=== PATIENT | male | born 1960 ===

== ENCOUNTER 2016-07-09 09:25 | Inpatient (IN) | payer OTHER ==
[2016-07-09] MEDS ORDERED: NS 500 ML IV ONE (09:35)
[2016-07-09] MEDS ORDERED: DEXAMETHASONE 10 MG/ML VIAL IVP ONE (09:53)
[2016-07-09] MEDS ORDERED: MANNITOL 20% 100 GM/500 ML BAG IV ONE (09:55)
--- NOTE | 2016-07-09 09:57 | CPEKG ---
Heart Rate: 65 RR Interval: 923 P-R Interval: 156 QRSD Interval: 96 QT Interval: 420 QTC Interval: 437 P Beebe: 26 QRS Beebe: 51 T Wave Beebe: 65 EKG Severity - NORMAL ECG - EKG Impression: SINUS RHYTHM Electronically Signed By: Baudilio Lizarraga 09-Jul-2016 15:00:12
--- NOTE | 2016-07-09 10:07 | EDPHY ---
H & P Time Seen by Provider: 07/09/16 09:34 HPI/ROS: HPI Altered mental status. 55-year-old male from [facility]. The patient has a history of brain cancer as well as a prior CVA with left-sided residual weakness. Staff noted a sudden decrease in mental status documented at 9:00 a.m.. Serum glucose normal per EMS. EMS reported that patient's pupils were 3 mm and reactive bilaterally on their exam. On my exam he has pinpoint pupils that are minimally reactive. Patient will nod his head and mumble in response to questioning. He is a do not resuscitate. We have the documentation for this with him. ROS: Unable to obtain review of systems secondary to patient's altered mental status. Past medical history: Brain cancer, CVA, left-sided weakness. Social history: From senior living. As above. Physical Exam: General Appearance: Alert, no distress. As above. This patient appears well- hydrated and well-nourished. Eyes: Pupils pinpoint, equal and round with minimal reactivity to light, no pallor or injection. No lid edema, erythema or injection. Head: No evidence of acute traumatic injury. ENT, Mouth: Mucous membranes are moist. Respiratory: There are no retractions, lungs are clear to auscultation with good air movement bilaterally. Cardiovascular: Regular rate and rhythm. No murmur. Gastrointestinal: Obese habitus. Abdomen is soft and nontender, no masses, bowel sounds normal. No obvious focal tenderness at McBurney's point. No Cruz sign. Neurological: Moves right upper and lower extremity. Skin: Warm and dry. Left upper extremity is wrapped in a gauze wrap secondary to the patient banging this strep extremity into objects at senior living and picking at scratches. Musculoskeletal: Neck is supple. Extremities are symmetrical except as noted above Psychiatric: Not applicable Database: EKG: EKG time is 9:56 a.m.; EKG shows a narrow complex normal sinus rhythm with a ventricular rate of 65. The RI, QRS, QT intervals are within normal limits. There are no ST-T wave changes indicative of ischemic or injury pattern. No evidence of right heart strain. Interpreted by me. Imaging: CT scan of head without contrast: Significant for a right frontal lobe 9 cm in diameter mass with vasogenic edema surrounding it and some hemorrhage. There is a 10 mm right-sided a left-sided shift. There is early uncal herniation. The 4th ventricle appears to be open. He also has a 12 x 5 mm artifact in the right parietal lobe. Unable to clarify what this is. Results were discussed with staff radiologist. Procedures: Emergency department course: IV placed. Patient placed on a monitor. Do not resuscitate paperwork verified. Patient was sent for a noncontrast CT scan of his head. His vital signs have been reviewed. 10:00 a.m., patient has returned from CT. Patient given 10 mg of IV Decadron and 1 gram/kilogram of IV mannitol. No change in the patient's neurologic status. Plan to admit to hospitalist service. 10:15 a.m., discussed case with hospitalist. Patient will be admitted to the hospitalist service under Dr. Hough. Patient has received IV Decadron and is currently receiving IV mannitol. No change in his mental status or neurologic Assessment. Patient admitted to the hospitalist service in stable condition. Differential Diagnosis: The differential diagnosis on this patient includes but is not limited to large right frontal lobe mass with hemorrhage and edema, altered mental status, uncal herniation. This represents a partial list of diagnoses considered. These considerations are based on history, physical exam, past history, reassessment and diagnostic testing. Constitutional: Initial Vital Signs Temperature (C) 37.5 C 07/09/16 09:35 Heart Rate 63 07/09/16 09:35 Respiratory Rate 23 H 07/09/16 09:35 Blood Pressure 148/89 H 07/09/16 09:35 O2 Sat (%) 93 07/09/16 09:35 O2 Delivery Mode Nasal Cannula O2 (L/minute) 2 Allergies/Adverse Reactions: No Known Allergies Allergy (Unverified 07/09/16 10:17) Home Medications: Medication Instructions Recorded Acetaminophen [Tylenol ES 500 mg 500 mg PO Q4H PRN 07/09/16 (*)] Dexamethasone [Decadron 4 MG (*)] 4 mg PO BID 07/09/16 Famotidine [Pepcid 20 MG (*)] 20 mg PO BID 07/09/16 Gabapentin [Neurontin 300 MG (*)] 300 mg PO HS 07/09/16 Granisetron HCl 1 mg PO Q12H PRN 07/09/16 Insulin Lispro [humALOG LISPRO 100 3 unit SC AD 07/09/16 units/ml (*)] Lacosamide [Vimpat 50 mg (*)] 100 mg PO DAILY 07/09/16 Latanoprost 0.005% [Xalatan 0.005% 1 drops EACHEYE HS 07/09/16 (*)] Naproxen 250 mg PO DAILY PRN 07/09/16 Omeprazole [Prilosec 20 mg] 20 mg PO DAILY 07/09/16 Prochlorperazine Maleate 10 mg PO Q6H PRN 07/09/16 [Compazine 10mg (*)] Sennosides 1 tab PO DAILY 07/09/16 Sodium Chloride [Salt Tablet] 3,000 mg PO TID 07/09/16 Sulfamethox/Tmp 800/160 mg 1 tab PO MOWEFR@0800 07/09/16 [Bactrim Ds] levETIRAcetam [Keppra 500 mg (*)] 2,000 mg PO BID 07/09/16 Medical Decision Making - Data Points Laboratory Results: Laboratory Results 07/09/16 10:10 07/09/16 10:10 Medications Given: Discontinued Medications Dexamethasone (Decadron Injection) 10 mg IVP EDNOW ONE Stop: 07/09/16 09:54 Last Admin: 07/09/16 10:08 Dose: 10 mg Diazepam (Valium Injection) 5 mg IVP ONCE ONE Stop: 07/09/16 15:31 Last Admin: 07/09/16 15:40 Dose: 5 mg Furosemide (Lasix Injection) 40 mg IVP ONCE ONE Stop: 07/10/16 07:01 Last Admin: 07/10/16 06:48 Dose: 40 mg Sodium Chloride (Ns) 500 mls @ 500 mls/hr IV EDNOW ONE Stop: 07/09/16 10:34 Last Admin: 07/09/16 10:22 Dose: 500 mls Mannitol (Mannitol 20% (Premix)) 80 gm IV EDNOW ONE Stop: 07/09/16 09:56 Last Admin: 07/09/16 09:59 Dose: 80 gm Departure - Departure Disposition: [facility] Acute Clinical Impression: Right frontal lobe mass, Altered mental status, Uncal herniation, Intracranial hemorrhage
[2016-07-09 10:19] LABS: % IMMATURE GRANULYOCYTES 2.4 % (0.0-1.1); ABSOLUTE IMMATURE GRANULOCYTES 0.26 10^3/uL (0.00-0.10); ABSOLUTE NRBC COUNT 0.02 10^3/uL (0-0.01); ADD DIFF? NO; ADD MORPH? NO; ADD SCAN? NO; ATYPICAL LYMPHOCYTE FLAG 0 (0-99); FRAGMENT RBC FLAG 0 (0-99); HEMATOCRIT 37.3 % (40.0-51.0); LEFT SHIFT FLG 40 (0-99); LIPEMIA HEMOLYSIS FLAG 90 (0-99); MEAN CELL HEMOGLOBIN 32.8 pg (27.9-34.1); MEAN CELL HEMOGLOBIN CONCENTR. 34.9 g/dL (32.4-36.7); MEAN CELL VOLUME 94.2 fL (81.5-99.8); MEAN PLATELET VOLUME 8.5 fL (8.7-11.7); NRBC-AUTO% 0.2 % (0.0-0.2); PLATELET CLUMPS FLAG 10 (0-99); PLATELET COUNT 150 10^3/uL (150-400); RED BLOOD CELL COUNT 3.96 10^6/uL (4.40-6.38)
[2016-07-09 10:41] LABS: ANION GAP 11 mEq/L (8-16); CALCIUM 8.8 mg/dL (8.5-10.4); CARBON DIOXIDE 25 mEq/l (22-31); CHLORIDE 92 mEq/L (97-110); CREATININE 0.6 mg/dL (0.7-1.3); GLOMERULAR FILTRATION RATE > 60; GLUCOSE 96 mg/dL (70-100); POTASSIUM 3.9 mEq/L (3.5-5.2); SODIUM 128 mEq/L (134-144)
[2016-07-09 11:01] LABS: INR 1.01 (0.83-1.16); PROTIME(PATIENT) 13.2 SEC (12.0-15.0)
--- NOTE | 2016-07-09 14:37 | GHP ---
DATE OF ADMISSION: 07/09/2016 CHIEF COMPLAINT: Altered mental status. HPI: This is a 55-year-old male, diagnosed with glioblastoma 14 months ago. He has since undergone 2 resections; last of which was done at the [facility] on May 16, 2016. Following his resection he went to inpatient rehab. When he was readmitted to [facility] on June 18, 2016 after having a bout of confusion that was attributed to symptomatic hyponatremia. The patient has since been discharged from [facility] and was at [facility] for the past week and a half when he was noted to have acute change in his mental status this morning. Prior to today he had been talking and following commands. He has been falling. He has not been noted to have any fevers or chills. At the time of my exam the patient opens eyes to voice, but is otherwise unresponsive and does not follow commands. He is nonverbal. PAST MEDICAL HISTORY: 1. Glioblastoma multiforme, diagnosed 14 months ago after having a seizure at work. 2. Renal cell carcinoma. 3. SIADH 4. Seizures PAST SURGICAL HISTORY: 1. Glioblastoma multiforme resection x2. 2. Right shoulder surgery. HOME MEDICATIONS: Were reviewed; refer to [facility] for details. ALLERGIES: No known drug allergies. SOCIAL HISTORY: The patient does have a history of some heavy alcohol use. There is no history of tobacco or illicit drug use. FAMILY HISTORY: Reviewed and noncontributory. REVIEW OF SYSTEMS: Comprehensive 10-point review of systems was attempted but unobtainable due the patient's altered mental status. PHYSICAL EXAM: VITAL SIGNS: Blood pressure 126/70, pulse 73, respiratory rate 16, O2 saturation 92% on 2 L. Temperature 38.3. GENERAL: Obtunded. Not following commands. EYES: Pupils are 3 mm and minimally reactive. MOUTH: Moist mucous membranes. NECK: Supple. CARDIOVASCULAR: S1, S2. No JVD. No lower extremity edema. PULMONARY: Lungs are clear. No wheezes, rales, or rhonchi. ABDOMEN/GI: Soft, nontender, nondistended. No guarding or rebound tenderness. Normoactive bowel sounds. EXTREMITIES: No clubbing or cyanosis. NEURO: The patient is not following commands. He is alert and oriented x0. SKIN: There is a dressed pressure ulcer over his left ankle that I did not examine. DIAGNOSTICS: WBC is 10.7, hemoglobin 13, hematocrit 37.3, platelets 150. Sodium 128, potassium 3.9, chloride 92, CO2 of 25, BUN 15, creatinine 0.6, glucose 96. Head CT shows large partially hemorrhagic right frontal parietal mass with vasogenic edema with mass effect, leftward subfalcine herniation, uncal herniation and transtentorial herniation. Chest x-ray, which I visualized and personally interpreted, shows a right basilar consolidation suspicious for pneumonia. ASSESSMENT AND PLAN: This is this is a 55-year-old male with history of glioblastoma multiforme status post multiple resections; last of which was done at the [facility] on May 16, 2016 presenting with: 1. Acute encephalopathy with head CT consistent with a large partially hemorrhagic right frontal parietal mass with diffuse vasogenic edema. Plan: I discussed the case with Dr. Smith from neurosurgery who will see the patient urgently in consultation. He is recommended to have a stat MRI of the brain. The patient's would like for her to be transferred to the [facility] if possible. We will defer making this decision until the MRI is done, which the patient's is agreeable with. For now, we will treat his swelling medically with Decadron. He also received a dose of mannitol in the emergency department. 2. Sepsis evidenced by tachypnea, fever, leukocytosis and possible pneumonia on chest x-ray. Plan: The patient will be started on Levaquin for treatment of pneumonia. We will order blood cultures. 3. Hyponatremia with history of SIADH Plan: Continue salt tablets a monitor sodium 4. Pressure Ulcer left ankle (present on admission) Plan: Continue wound care Patient is high risk. He was seen on 3N where neurosurgery had not been consulted by the ED. 40 minutes of critical care time were spent caring and coordinating care for this critically ill patient. /[id number]/MODL MTDD
[2016-07-09] MEDS ORDERED: GADOBUTROL 10 ML VIAL IVP ONE (15:25)
--- NOTE | 2016-07-09 15:26 | WOCRNPDOC ---
WOCRN Advanced Assessment Note - Skin Integrity Problem, Advanced Assess Left Lateral Distal Leg Dressing Type: Alginate, Coban, Kerlix Dressing Description: Clean/Dry, Intact Exudate Amount: Minimal Exudate Characteristic(s): Serosanguinous Integumentary Issue Intervention: Dressing Changed Riky Wound Tissue: Erythema Wound Bed Constitution: Granulation Tissue (30%), Adhered Slough (70%) Wound Edges: Epibole, Well Defined Site Odor: None Site Measurement - Head-to-Toe Length X Width X Depth (cm): 1x1x0.5 Extremity Temperature: Warm Skin Integrity Problem Comment: Cleaned with wound cleanser and gauze. Skin prep riky wound, and iodosorb to wound bed. Covered with non border foam and secured with kerlix. Sumeet YANEZ in room for all care. Left Lower Lateral Leg Dressing Type: Alginate, Coban, Kerlix Dressing Description: Clean/Dry, Intact Exudate Amount: Minimal Exudate Characteristic(s): Serosanguinous Integumentary Issue Intervention: Dressing Changed Riky Wound Tissue: Erythema Riky Wound Swelling: Mild Wound Bed Color: Red, Yellow Wound Bed Constitution: Granulation Tissue (50%), Adhered Slough (50%) Wound Edges: Attached, Irregular Site Measurement - Head-to-Toe Length X Width X Depth (cm): 2x1.5x0.3, proximal/ posterior wound: 0.5x1.5x0.2 Skin Integrity Problem Comment: Likely previous skin tear sites. Cleaned with wound cleanser and gauze. Skin prep riky wound, and iodosorb to wound bed. Covered with non border foam and secured with kerlix. Sumeet YANEZ in room for all care. Left Arm Skin Tears Dressing Type: ABD Pad, Kerlix Dressing Description: Clean/Dry, Intact (strongly adhered to wound beds) Exudate Amount: Minimal Exudate Characteristic(s): Serosanguinous Integumentary Issue Intervention: Dressing Changed Wound Bed Constitution: Granulation Tissue (50%), Adhered Slough (50%) Site Measurement - Head-to-Toe Length X Width X Depth (cm): x 5 skin tears, the largest 3x3x0.2 to 0.5x0.5x0.1 Skin Integrity Problem Comment: Category 3 STAR classifcation skin tears. Dressed per skin tear policy. Asked RN to initiate skin tear policy changes on worklist. Wound care will not follow these wounds. Coccyx Pressure Injury Dressing Type: Open to Air Riky Wound Tissue: Xerotic Pressure Injury Stage: Stage 1 Pressure Injury Present on Admit: Yes Skin Integrity Problem Comment: Coccyx non blanching and per patient's 's report area was previously open at an unknown stage. Riky wound tissue blanching erythema, darker discoloration along right medial buttock/cleft of unclear etiology. Query early/slight Deep Tissue Injury. Per patient's the discoloration is new since the patient's wheelchair and custom cushion were sent for service a few days ago. Will reassess thursday. Area of scar tissue noted around right lower sacrum from previously open pressure injury. Also non blanching and previous stage unknown. Communicated findings with Beata VILLAGOMEZ.
[2016-07-09] MEDS ORDERED: DIAZEPAM 10 MG/2 ML SYR IVP ONE (15:30)
--- NOTE | 2016-07-09 16:22 | GCON ---
NEUROSURGICAL CONSULTATION CHIEF COMPLAINT: Confusion. HISTORY OF PRESENT ILLNESS: The patient is a 55-year-old male, who was diagnosed with a glioblastoma multiforme in May 18, 2015. He had surgery at [facility] that was followed by [facility] and radiation. He developed tumor recurrence, and underwent a second resection of this lesion on May 16, 2016. He had his Gliadel wafers placed at that point in time with further treatment in the [facility]. In June, he developed some somnolence , and he was found to have significant vasogenic edema. He was treated with steroids, and his symptoms improved. The patient has been made DNR status and is currently at his [facility]. Today, he was found to have decreased mental status, and he was transferred to [facility]. He was admitted, and neurosurgical consultation has been requested. The patient currently denies headache. He denies any nausea or vomiting. PAST MEDICAL HISTORY: 1. GBM. 2. CVA. PAST SURGICAL HISTORY: 1. Includes a craniotomy in May 2015. 2. Redo craniotomy May 2016. ALLERGIES: There are no known drug allergies. FAMILY HISTORY: Patient has no family history of brain lesions. SOCIAL HISTORY: Patient is with 2 daughters. He does not smoke and occasionally drinks. REVIEW OF SYSTEMS: Negative. PHYSICAL EXAMINATION: GENERAL: Patient is a 55-year-old male lying in bed. He is quite somnolent. He does open his eyes to verbal and tactile stimuli. He does answer simple questions. HEENT: Pupils are 3 mm, equal, round, reactive to light. The patient does have a left-sided phaco-shield droop. NEUROLOGIC: He has left arm and leg weakness. His strength appears to be physiologic in his right arm and leg. His sensation is grossly intact to light touch in his arms and legs. Deep tendon reflexes are 1+ out of 4 in the bilateral biceps, triceps, brachioradialis, patellar, and Achilles. There is a negative Amy's with no clonus. DIAGNOSTIC STUDIES: Head CT without contrast from [facility] on 07/09/2016 shows a very large right frontoparietal lesion that measures approximately 9 x 5 cm. There is some hyperintensity suspicious for hemorrhage. There was a significant amount of vasogenic edema, which produces significant right to left shift. There is no evidence of hydrocephalus. IMPRESSION: This is a 55-year-old male who is approximately 13 months out from his initial craniotomy for resection of glioblastoma multiforme. He has progressive somnolence today, most likely related to his underlying recurrent tumor and significant mass effect and vasogenic edema. PLAN: All the above discussed in detail with the patient and his , Dr. Hough, as well as Dr. Smith who saw the patient as well. At this point in time, he did receive 10 mg of Decadron in the emergency department. Would recommend he continue with Decadron, likely 10 mg p.o. q.6 hours. We would also like to obtain an MRI of the brain with and without contrast to better evaluate this brain lesion. At this point in time, the patient would have the option of transferring to [facility] for consideration of further care or moving towards comfort measures. The family is considering transfer to [facility], and we will make further treatment recommendations after completion of the MRI. The patient is hyponatremic at 128. If the family does wish to pursue further care, then he would likely benefit from correction of his hyponatremia to a sodium above 140. /[id number]/MODL MTDD
[2016-07-09] MEDS: SODIUM CHLORIDE 1,000 MG TAB PO SCH (17:19)
[2016-07-09] MEDS ORDERED: ONDANSETRON 4 MG/2 ML VIAL IVP PRN (20:08)
[2016-07-09] MEDS ORDERED: levETIRAcetam 500 MG TAB PO SCH (21:00)
[2016-07-09] MEDS: LATANOPROST 0.005% 2.5 ML OPHT DROPS EACHEYE SCH (23:19)
[2016-07-09] MEDS ORDERED: NS 1,000 ML IV SCH (23:45)
[2016-07-10] MEDS ORDERED: DEXAMETHASONE 4 MG/ML VIAL IVP SCH
[2016-07-10] MEDS: levETIRAcetam 2,000 MG in NS 100 ML IV SCH ×3 (00:51→22:01)
[2016-07-10] MEDS: GABAPENTIN 300 MG CAP PO SCH ×2 (00:55→22:26)
[2016-07-10] MEDS: SODIUM CHLORIDE 1,000 MG TAB PO SCH ×4 (00:56→23:34)
[2016-07-10] MEDS: DEXAMETHASONE 10 MG/ML VIAL IVP SCH ×5 (00:58→23:56)
[2016-07-10 05:33] LABS: % IMMATURE GRANULYOCYTES 0.6 % (0.0-1.1); ABSOLUTE IMMATURE GRANULOCYTES 0.06 10^3/uL (0.00-0.10); ADD DIFF? NO; ADD MORPH? NO; ADD SCAN? NO; ATYPICAL LYMPHOCYTE FLAG 0 (0-99); FRAGMENT RBC FLAG 20 (0-99); HEMATOCRIT 35.1 % (40.0-51.0); HEMOGLOBIN 12.4 g/dL (13.7-17.5); LEFT SHIFT FLG 60 (0-99); LIPEMIA HEMOLYSIS FLAG 90 (0-99); MEAN CELL HEMOGLOBIN CONCENTR. 35.3 g/dL (32.4-36.7); MEAN CELL VOLUME 90.7 fL (81.5-99.8); MEAN PLATELET VOLUME 8.6 fL (8.7-11.7); PLATELET CLUMPS FLAG 0 (0-99); PLATELET COUNT 160 10^3/uL (150-400); RED BLOOD CELL COUNT 3.87 10^6/uL (4.40-6.38); RED CELL DISTRIBUTION WIDTH 17.4 % (11.5-15.2)
[2016-07-10 05:45] LABS: ANION GAP 7 mEq/L (8-16); CALCIUM 8.6 mg/dL (8.5-10.4); CARBON DIOXIDE 24 mEq/l (22-31); CHLORIDE 88 mEq/L (97-110); CREATININE 0.5 mg/dL (0.7-1.3); GLOMERULAR FILTRATION RATE > 60; GLUCOSE 82 mg/dL (70-100); POTASSIUM 4.2 mEq/L (3.5-5.2)
[2016-07-10 06:08] LABS: SODIUM 119 mEq/L (134-144)
[2016-07-10] MEDS ORDERED: ACETAMINOPHEN 500 MG TAB PO PRN (06:51)
[2016-07-10] MEDS ORDERED: GRANISETRON HCL 1 MG PO PRN ×2 (06:51→06:56)
[2016-07-10] MEDS ORDERED: FUROSEMIDE 40 MG/4 ML VIAL IVP ONE (07:00)
--- NOTE | 2016-07-10 07:33 | SOAPPROG ---
SOAP Progress Note Assessment/Plan: Assessment: 55 yo M with progression of GBM Plan: neuro: about the same as yesterday, MRI shows large right sided tumor with significant vasogenic edema and shift. We discussed with Dr Hough yesterday that she would like to move to comfort. keep decadron and keppra for now, until he officially made comfort care please call with neuro changes will sign off if he moves to comfort care discussed with Dr Mcintyre 07/10/16 07:29 Subjective: patient denies headache, no N/V. Objective: Vital Signs Temp Pulse Resp BP Pulse Ox 37.1 C 74 14 152/99 H 98 07/10/16 04:19 07/10/16 04:19 07/10/16 04:19 07/10/16 04:19 07/10/16 04:19 Laboratory Results 07/10/16 04:17 07/10/16 04:17 07/09/16 07/10/16 07/11/16 05:59 05:59 05:59 Intake Total 1415 Output Total 100 Balance 1315 PT 13.2 SEC (12.0-15.0) 07/09/16 10:10 INR 1.01 (0.83-1.16) 07/09/16 10:10 somnolent but arousable with verbal stimuli Pupils: 2 mm ou reactive left facial droop limited movement of left arm/leg 5/5 right arm/leg + follows commands ICD10 Worksheet Patient Problems: Problems Problem Status Onset Altered mental status Acute Intracranial hemorrhage Acute Right frontal lobe mass Acute Uncal herniation Acute
[2016-07-10] MEDS ORDERED: LACOSAMIDE 50 MG TAB PO SCH (09:00)
[2016-07-10] MEDS ORDERED: NON-FORMULARY NEW DRUG (Omeprazole [Prilosec 20 Mg] 20 MG) PO SCH (09:00)
[2016-07-10] MEDS: FAMOTIDINE 20 MG TAB PO SCH ×2 (09:01→22:26)
[2016-07-10] MEDS: PANTOPRAZOLE SODIUM 40 MG TAB PO SCH (09:01)
--- NOTE | 2016-07-10 10:04 | HOSPPROG ---
Hospitalist Progress Note Assessment/Plan: 55 y/o male with GBM s/p resection x2 presenting with #Acute encephalopathy in the setting of Brain Tumor with worsening vasogenic edema and bleeding -I discussed the case with the Neuro surgery team who are not recommending operative intervention. I discussed further treatment options with the patient and his Liza who are both wanting to pursue comfort care and hospice. Transfer to the [facility] was offered. -Will consult hospice #suspected pneumonia -cont levaquin for now #worsening hyponatremia with h/o SIADH -buff cap ivf -the patient does not want further aggressive treatment which seems reasonable given the overall prognosis of his GBM Subjective: Denies pain Objective: Vital Signs Temp Pulse Resp BP Pulse Ox 37.3 C 76 19 127/83 H 90 L 07/10/16 08:15 07/10/16 08:15 07/10/16 08:15 07/10/16 08:15 07/10/16 08:15 Laboratory Results 07/10/16 04:17 07/10/16 04:17 07/09/16 07/10/16 07/11/16 05:59 05:59 05:59 Intake Total 1415 Output Total 100 Balance 1315 PT 13.2 SEC (12.0-15.0) 07/09/16 10:10 INR 1.01 (0.83-1.16) 07/09/16 10:10 opens eyes to voice left side is weak pupils are constricted and minimally reactive - Physical Exam Constitutional: chronically ill appearing Cardiovascular: regular rate and rhythym, no murmur, rub, or gallop Respiratory: no respiratory distress, no rales or rhonchi, clear to auscultation , reduced air movement, No expiratory wheeze, No inspiratory crackles, No bronchial breath sounds Gastrointestinal: normoactive bowel sounds, soft, non-tender abdomen, no palpable masses, No guarding, No rebound Genitourinary: no bladder fullness, no bladder tenderness, no renal bruits Skin: no rashes or abrasions, no fluctuance, no induration Neurologic: No facial droop ICD10 Worksheet Patient Problems: Problems Problem Status Onset Right frontal lobe mass Acute Altered mental status Acute Uncal herniation Acute Intracranial hemorrhage Acute
[2016-07-10] MEDS: LACOSAMIDE 100 MG in NS 50 ML IV SCH (13:14)
[2016-07-10] MEDS: LATANOPROST 0.005% 2.5 ML OPHT DROPS EACHEYE SCH (22:09)
[2016-07-11] MEDS: DEXAMETHASONE 10 MG/ML VIAL IVP SCH ×2 (05:21→13:20)
[2016-07-11] MEDS: SODIUM CHLORIDE 1,000 MG TAB PO SCH (07:56)
[2016-07-11] MEDS: FAMOTIDINE 20 MG TAB PO SCH (07:56)
[2016-07-11] MEDS: PANTOPRAZOLE SODIUM 40 MG TAB PO SCH (07:56)
[2016-07-11 08:14] VITALS: BP 135/88; PULSE 64; RESP 18; TEMP 97.5; O2SAT 90
[2016-07-11] MEDS ORDERED: morphINE 10 MG/0.5 ML UDSYR PO PRN (08:54)
[2016-07-11] MEDS: LACOSAMIDE 100 MG in NS 50 ML IV SCH (10:11)
[2016-07-11] MEDS: levETIRAcetam 2,000 MG in NS 100 ML IV SCH (11:20)
--- NOTE | 2016-07-11 12:23 | WOCRNPDOC ---
WOCRN Advanced Assessment Note - Skin Integrity Problem, Advanced Assess Left Lateral Distal Leg Dressing Type: Iodosorb, Kerlix, Non-Bordered Foam Dressing Description: Saturated Exudate Amount: Moderate Exudate Color: Yellow Exudate Characteristic(s): Serous Integumentary Issue Intervention: Dressing Changed Nhi Wound Tissue: Intact Nhi Wound Swelling: None Wound Bed Color: Red, Yellow Wound Bed Constitution: Granulation Tissue (30%), Adhered Slough (70%) Wound Edges: Well Defined Site Odor: Slight Skin Integrity Problem Comment: Outer Kerlix dressing saturated over this wound , which appears to be draining significantly. Upon assessment, wound bed continues to be comprised of mostly adhered slough. Reapplied iodosorb to wound bed, and applied Hydrofera Blue Ready in wound bed, followed by non-bordered foam to cover and Kerlix. Report given to chain sales representative August. Left Lower Lateral Leg Dressing Type: Iodosorb, Kerlix, Non-Bordered Foam Dressing Description: Saturated Exudate Amount: Moderate Exudate Color: Yellow Exudate Characteristic(s): Serous Integumentary Issue Intervention: Dressing Changed Nhi Wound Tissue: Intact Nhi Wound Swelling: None Wound Bed Color: Red, Yellow Wound Bed Constitution: Granulation Tissue, Smooth Tissue, Adhered Slough Wound Edges: Irregular Site Odor: Slight Skin Integrity Problem Comment: Two, slough-filled wounds noted, w/ granulation and smooth tissues along margins. This wound is exudative, most likely r/t debridement using iodosorb. Changed dressing to Hydofera Blue to cover, followed by Kerlix. Report given to chain sales representative August. Coccyx Pressure Injury Dressing Type: Open to Air Exudate Amount: None Exudate Characteristic(s): None Integumentary Issue Intervention: Lotion/Cream Applied (Dimethicone) Nhi Wound Tissue: Blanching, Erythema, Denuded (in gluteal cleft, mild) Nhi Wound Swelling: Mild Wound Bed Color: Red Pressure Injury Stage: Stage 1 Pressure Injury Present on Admit: Yes Skin Integrity Problem Comment: Skin over coccyx continues to be non-blanching, presently intact and consistent w/ stage I pressure injury. There is another area of patient's R medial buttock/gluteal cleft which consists of shiny, smooth purple/red tissue. This discoloration is not over a bony prominence, so the etiology is unclear. Based upon noted from previous assessments, this site is unchanged. Applied dimethicone cream, and assisted chain sales representative August to turn patient on his L side, off-loading coccyx. Wound care will continue to monitor.
--- NOTE | 2016-07-11 13:54 | PDIAF ---
- Diagnosis Diagnosis: brain tumor with herniation Code Status: Do Not Resuscitate - Medication Management Discharge Medications: Medications to Continue on Transfer Acetaminophen [Tylenol ES 500 mg (*)] 500 mg PO Q4H PRN 07/09/16 [Last Taken Unknown] Dexamethasone [Decadron 4 MG (*)] 4 mg PO BID 07/09/16 [Last Taken Unknown] Famotidine [Pepcid 20 MG (*)] 20 mg PO BID 07/09/16 [Last Taken Unknown] Gabapentin [Neurontin 300 MG (*)] 300 mg PO HS 07/09/16 [Last Taken Unknown] Granisetron HCl 1 mg PO Q12H PRN 07/09/16 [Last Taken Unknown] Lacosamide [Vimpat 50 mg (*)] 100 mg PO DAILY 07/09/16 [Last Taken Unknown] levETIRAcetam [Keppra 500 mg (*)] 2,000 mg PO BID #0 tab 07/11/16 [Last Taken Unknown] morphINE [Roxanol 10 mg/0.5 ml oral soln (*)] 5 - 10 mg PO Q2HRS PRN #0 udsyr [Last Taken Unknown] Discharge Medications: Refer to the Discharge Home Medication list for PRN reason. - Follow Up Care Current Providers and Referrals: Patient,NotPresent [Unknown] - As per Instructions
--- NOTE | 2016-07-11 14:17 | GDS ---
DISCHARGE DIAGNOSES: 1. Acute encephalopathy in the setting of glioblastoma multiforme with worsening vasogenic edema an d bleeding. 2. Suspected pneumonia. 3. Worsening hyponatremia and syndrome of inappropriate antidiuretic hormone secretion. CONSULTANTS: [facility]. HOSPITAL COURSE AND STAY BY PROBLEMS: Acute encephalopathy: The [facility] with increased confusion. A CT and MRI of the brain wer e done that confirmed worsening of his glioblastoma multiforme with severe surrounding vasogenic francie ma and leftward subfalcine herniation and early uncal herniation. Treatment options were discussed with the patient and his family who have opted for comfort care. T he patient was seen by hospice on 07/11/2016, where the decision was made to transfer the [facility] for [facility] end of life management. PHYSICAL EXAM: VITAL SIGNS: On day of discharge, blood pressure 135/88, pulse of 64, respiratory r ate 18, O2 saturation 90% on 4 L, temperature afebrile. NEURO: The patient is unarousable during t he time of my exam. DISCHARGE MEDICATIONS: Please refer to discharge medication reconciliation in [facility]. DISCHARGE INSTRUCTIONS: The patient will be transferred to the hospice care center for further end of life care. /[id number]/MODL
== END 2016-07-11 15:49 | disposition hospice, home (50) | DRG 54 ==
LOC: EDUNIT# → F3N 13:15
PROVIDERS: ADMIT Family Medicine; ATTEND Family Medicine
DX: C71.9 Malignant neoplasm of brain, unspecified (principal); G13.1 Other systemic atrophy primarily affecting central nervous system in neoplastic disease; G93.6 Cerebral edema; G93.5 Compression of brain; J18.9 Pneumonia, unspecified organism; I61.9 Nontraumatic intracerebral hemorrhage, unspecified; E22.2 Syndrome of inappropriate secretion of antidiuretic hormone; I69.954 Hemiplegia and hemiparesis following unspecified cerebrovascular disease affecting left non-dominant side; L89.529 Pressure ulcer of left ankle, unspecified stage; L89.151 Pressure ulcer of sacral region, stage 1; Z85.528 Personal history of other malignant neoplasm of kidney; Z66 Do not resuscitate
CPT/HCPCS: 82947-QW; 96374; A9585; J1953; J1956; J2405